=== PATIENT | male | born 1985 | race Caucasian/White ===

== ENCOUNTER 2018-07-13 19:52 | Emergency (ER) | payer OTHER, SELFPAY ==
[2018-07-13 20:43] LABS: #Basophils 0.1 thou/uL (0.0-0.2); #Eosinphils 0.5 thou/uL (0.0-0.7); #Monocytes 0.7 thou/uL (0.11-0.59); #Neutrophils 4.8 thou/uL (1.40-6.50); %Basophils 1.2 % (0.0-1.0); %Eosinophils 5.8 % (0.0-10.0); %Lymphocytes 24.4 % (21.0-51.0); %Neutrophils 59.7 % (42.0-75.0); Hemoglobin 14.6 g/dL (14.0-18.0); Mean Corpuscular HGB CONC 32.6 g/dL (32.0-36.0); Mean Platelet Volume 7.4 fL (7.4-10.4); Platelet Count 181 thou/uL (130-400); RBC Distribution Width 11.2 % (11.5-14.5); Red Blood Cell (RBC) Count 4.87 mill/uL (4.70-6.10)
[2018-07-13 20:51] LABS: PTT 27.8 SEC (22.9-36.1); Prothrombin Time 12.9 SEC (12.0-14.7)
[2018-07-13] MEDS ORDERED: HYDROcodone/Acetaminophen 10/325 mg Tablet ONE (20:57)
[2018-07-13 21:04] LABS: ALT (SGPT) 11 U/L (8-55); AST (SGOT) 11 U/L (5-34); Albumin 4.1 g/dL (3.5-5.0); Alkaline Phosphatase 72 U/L (40-150); Anion Gap 12 mmol/L (10-20); BUN (Urea Nitrogen) 9 mg/dL (8.9-20.6); Bilirubin, Total 0.5 mg/dL (0.2-1.2); Calc. Creatinine Clearance 0 mL/min (70-130); Calcium 9.2 mg/dL (7.8-10.44); Carbon Dioxide 24 mmol/L (22-29); Chloride 107 mmol/L (98-107); Estimated GFR-MDRD Greater than 90; Glucose 102 mg/dL (70-105); Potassium 4.4 mmol/L (3.5-5.1); Protein, Total 7.1 g/dL (6.0-8.3); Sodium 139 mmol/L (136-145)
== END 2018-07-13 21:58 ==
LOC: ERS 19:52
DX: I82.402 Acute embolism and thrombosis of unspecified deep veins of left lower extremity (principal); I10 Essential (primary) hypertension; E03.9 Hypothyroidism, unspecified; J45.909 Unspecified asthma, uncomplicated; F41.9 Anxiety disorder, unspecified; F17.220 Nicotine dependence, chewing tobacco, uncomplicated; Z79.899 Other long term (current) drug therapy
CPT/HCPCS: 36415; 80053; 85025; 85610; 85730; 99283

== ENCOUNTER 2018-07-19 22:54 | Observation (INO) | payer OTHER, SELFPAY ==
[2018-07-19] MEDS ORDERED: Promethazine HCl 25 MG/ML VIAL ONE (23:45)
--- NOTE | 2018-07-20 00:04 | ULT ---
LEFT LOWER EXTREMITY VENOUS ULTRASOUND WITH SPECTRAL ANALYSIS AND COLORFLOW EVALUATION: 07/19/2018 HISTORY: History of left lower extremity DVT, diagnosed one week ago. TECHNIQUE: Ladd-scale, color-flow, Doppler evaluation, and spectral analysis of the left lower extremity venous structures is performed with 2D imaging. FINDINGS: There is normal lumen compressibility and flow seen within the left lower extremity common femoral ve in and proximal superficial femoral vein; however, there is echogenic material with decreased lumen c ompressibility and near complete absence of flow within the left lower extremity posterior tibial and popliteal, as well as distal and mid superficial femoral veins, consistent with near occlusive to oc clusive DVT. There is normal lumen compressibility involving the limitedly visualized left lower ext remity profunda femoral vein, with flow also seen in this vein. There is normal lumen compressibilit y in the left lower extremity greater saphenous vein. IMPRESSION: Occlusive deep venous thrombosis, extending from the left lower extremity posterior tibial vein to th e mid left superficial femoral vein. The above findings were discussed with Jose Saini, nurse practitioner in the emergency department, on 07/19/2018 at 23:57 hours. CODE CR POS: TRAN
[2018-07-20 02:28] VITALS: BMI 28.8
[2018-07-20] MEDS ORDERED: Ketorolac Tromethamine 30 MG/ML VIAL ONE (02:35)
[2018-07-20] MEDS: Ketorolac Tromethamine 30 MG/ML VIAL IVP PRN ×3 (02:38→20:12)
[2018-07-20] MEDS ORDERED: Acetaminophen 325 MG TAB PO PRN (03:46)
[2018-07-20] MEDS: Sodium Chloride 0.9% 1,000 ML IV SCH ×2 (04:59→15:48)
[2018-07-20] MEDS: Heparin 10,000 UNITS/ 10 ML VIAL SLOW IVP SCH ×2 (05:00→21:06)
[2018-07-20] MEDS: Heparin 25,000 units/D5W 500 ML IVPB SCH ×2 (05:03→21:06)
[2018-07-20] MEDS: Levothyroxine 175 MCG TAB PO SCH (05:13)
--- NOTE | 2018-07-20 10:28 | CON ---
DATE OF CONSULTATION: 07/20/2018 HISTORY OF PRESENT ILLNESS: This is a 32-year-old gentleman with a diagnosis of DVT while in the grisel l about 1 week ago. He reports perhaps 2-3 weeks history of some swelling and discomfort in his left lower leg that preceded a week prior to that by some swelling and discomfort in his right forearm. He has no previous trauma or injury to the left leg prior to the diagnosis of DVT and he was begun on Eliquis about a week ago. Due to persistent swelling and discomfort, the patient has [facility] on 2 occasions since starting Eliquis and was admitted last night. PAST MEDICAL HISTORY: Include untreated hypertension as well as low thyroid. FAMILY HISTORY: Questionable for history of a clotting disorder and it is unclear whether the patien t's confusing arterial vascular problems with venous problems. His father evidently had a bypass for his clots and was also on warfarin, but did have a diagnosis of coronary disease and congestive hear t failure. PAST SURGICAL HISTORY: Appendectomy. SOCIAL HISTORY: As mentioned, the patient is incarcerated at the present time. He is not using toba clinical account specialist products now, but has used oral and inhalation tobacco products in the past. He also admits to o ccasional marijuana and meth use in the past. 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 MEDICATIONS: Include Eliquis 10 b.i.d. to be decreased to 5 b.i.d. as well as levothyroxine 175 mcg a day. Eliquis has been held and he is currently on full dose Lovenox b.i.d. ALLERGIES: None known. PHYSICAL EXAMINATION: GENERAL: Alert, cooperative gentleman, in no distress, appearing his stated age, well -built. VITAL SIGNS: Blood pressure 100/62, heart rate 70. NECK: No carotid bruits, no JVD. LUNGS: Clear to auscultation. No wheezes. CARDIAC: Regular rate and rhythm. No murmurs. ABDOMEN: Soft, nontender. EXTREMITIES: He has palpable posterior tibial and dorsalis pedis pulses. He has tenderness to palpa tion of his posterior tibial pulse in his left ankle with mild foot swelling, good pink color, and go od capillary fill. He has mild ankle swelling on the left and moderate swelling in the left calf wit h tenderness to palpation. His thigh does not appear to be particularly swollen. His upper extremit ies have pulses and there may be some mild swelling in his right forearm compared to his left. I do not think this represents an NOAC failure, but probably patient would benefit from leg elevation . We will check his lupus anticoagulant and T3 levels and we would consider switching him back from Lovenox to his NOAC. No indication at this time for thrombolytic therapy and certainly this patient probably never should receive an IVC filter as long as he can tolerate his anticoagulants.
[2018-07-20 11:24] LABS: PTT 182.6 SEC (22.9-36.1)
--- NOTE | 2018-07-20 14:08 | HP ---
PRIMARY CARE PROVIDER: Unknown. CHIEF COMPLAINT: Left lower extremity swelling. HISTORY OF PRESENT ILLNESS: Mr. Perez is a pleasant 32-year-old gentleman who was seen at [facility] on July 20, 2018. He presented to the emergency room department accompanied by [facility]. Approximately a week ago, he was diagnosed with left lower extremity DVT. This diagnosis was preceded by swelling and discomfort in his left lower leg. He was started on apixaban about a week ago. He continued to have swelling and discomfort and he came to the emergency room. He reports that after he came to [place], he has been keeping his legs elevated and this has resulted in improvement in both color and swelling of his left lower extremity. He denies any fevers or chills. He denies any chest pain or shortness of breath. He denies any nausea or vomiting. REVIEW OF SYSTEMS: All other systems reviewed and found to be negative. PAST MEDICAL HISTORY: Hypertension and hypothyroidism. PAST SURGICAL HISTORY: Appendectomy. PSYCHIATRIC HISTORY: Anxiety. SOCIAL HISTORY: The patient denies alcohol use or recreational drug use. He uses snuff. FAMILY HISTORY: The patient reports that several family members had blood clots. ALLERGIES: No known drug allergies. CURRENT MEDICATIONS: Levothyroxine 175 mcg daily and Eliquis 10 mg 2 times a day for a total of 7 days, then 5 mg 2 times a day. PHYSICAL EXAMINATION: GENERAL: Mr. Perez is awake and alert, not in acute distress. VITAL SIGNS: Blood pressure is 96/54, pulse 69, respiratory rate 14, and he is saturating 97% on room air. He is afebrile. EYES: No scleral icterus. No conjunctival pallor. ENT: Moist mucosal membranes, no oropharyngeal erythema or exudates. NECK: Supple, nontender, trachea is midline. RESPIRATORY: Accessory muscles of breathing are not active. Chest wall movements are symmetric bilaterally. LUNGS: Clear to auscultation without wheeze, rhonchi, or crepitations. CARDIOVASCULAR: S1 and S2 are heard, regular. Peripheral pulses palpable. No carotid bruit, no pericardial rub. ABDOMEN: Soft, nontender, bowel sounds heard, no hepatomegaly, no splenomegaly. NEUROLOGIC: Cranial nerves II-XII are intact. Deep tendon reflexes are 2+. MUSCULOSKELETAL: Power is 5/5 in all 4 extremities. He has a left calf swelling. SKIN: Multiple tattoos. LYMPHATIC: No cervical lymphadenopathy. PSYCHIATRIC: Normal mood, normal affect, patient is oriented to person, place, and time. LABORATORY DATA: Mr. Perez's labs and investigations were reviewed. He had a left lower extremity Doppler, which showed occlusive deep venous thrombosis extending from the left lower extremity posterior tibial vein to mid left superficial femoral vein. He has a normal white count, normal hemoglobin, normal platelet count, INR 1.1, unremarkable comprehensive metabolic profile. ASSESSMENT AND PLAN: Mr. Perez is a pleasant 32-year-old gentleman who was seen at [facility] on July 20, 2018. His problem list includes: 1. Deep vein thrombosis: Mr. Perez has deep vein thrombosis in the left lower extremity, which was diagnosed approximately a week ago. He has been started on apixaban. He reports that it has not gotten better. Vascular Surgery Service has been consulted. They recommended checking antithrombin 3 level as well as lupus anticoagulant and if those are normal, patient should be able to go back on apixaban. If those are abnormal, he may need to be taken off of apixaban. ASSESSMENT AND PLAN: 1. Hypothyroidism: We will continue Synthroid while he is in the hospital. 2. Hypertension: Patient's blood pressure is actually low today. We will continue to monitor vital signs and add antihypertensives if needed. LEVEL OF RISK: Moderate. LEVEL OF COMPLEXITY: Moderate. MTDD
--- NOTE | 2018-07-20 21:30 | CON ---
DATE OF CONSULTATION: 07/20/2018 REASON FOR CONSULTATION: DVT. HISTORY OF PRESENT ILLNESS: A 32-year-old male with recently diagnosed DVT of the left lower extremity approximately 1 week ago, presenting with worsening pain. The patient is currently incarcerated and about a week ago , had an ultrasound at the long term that showed an acute DVT and he was started on Eliquis. He states that he had had pain, swelling, and discomfort for the last 2 months prior to diagnosis. He states that since starting Eliquis, his pain has not improved and has actually worsened. He states that he has been compliant with his pills. He denies any bleeding on the Eliquis. He denies any recent surgeries or procedures, any prolonged immobility. He exercises frequently and denies any recent travel. The patient is a former smoker, has not smoked in 6 months, and states that he last used meth approximately 6 years ago. He states that his father had coronary artery disease and his mother had a blood clot in the leg. REVIEW OF SYSTEMS: Ten-point review of systems is negative except as per HPI. PAST MEDICAL HISTORY: Hypertension, hypothyroidism. PAST SURGICAL HISTORY: Appendectomy. PSYCHIATRIC HISTORY: Anxiety. SOCIAL HISTORY: Current snuff user. Former smoker, quit 6 months ago; and former use of meth and marijuana 6 years ago. FAMILY HISTORY: Blood clot in his mother in the leg, coronary artery disease in his father. ALLERGIES: No known drug allergies. CURRENT MEDICATIONS: Reviewed. PHYSICAL EXAMINATION: VITAL SIGNS: Temperature 97.6, pulse 69, respirations 14, saturating 97% on room air, blood pressure 96 to 146/54 to 75. GENERAL APPEARANCE: The patient is lying in bed in no acute distress. HEENT: No scleral icterus or conjunctival pallor. CARDIAC: S1 and S2. Regular rate and rhythm. No murmurs, rubs, or gallops. RESPIRATORY: Clear to auscultation bilaterally. ABDOMEN: Soft, nondistended, nontender. MUSCULOSKELETAL: Left calf swelling with greater size than the right and without significant edema or erythema. Mild tenderness to palpation. SKIN: Multiple tattoos. LYMPHATIC: No palpable lymphadenopathy. NEUROLOGIC: Cranial nerves II-XII grossly intact. PSYCHIATRIC: Awake, alert, oriented, anxious. LABORATORY DATA: White blood cells 8.9, hemoglobin 14.6, platelets 315. INR 1.1, PTT 52.7, BUN 13, creatinine 0.98. IMAGING DATA: Vascular ultrasound of left lower extremity dated on 07/19/2018 shows occlusive deep venous thrombosis extending from left lower extremity posterior tibial vein to the mid left superficial femoral vein. ASSESSMENT AND PLAN: A 32-year-old male with recent diagnosis of left lower extremity deep venous thrombosis 1 week ago, started on Eliquis, presenting with worsening pain. The patient states he was compliant with Eliquis, but had worsening lower extremity pain. The patient does have swelling in his left calf with mild tenderness, but he does have palpable pulses. As it has only been one week since the patient started medication, I do not think this represents a failure of Eliquis. This appears to be an unprovoked DVT based on history, and so the patient should receive at least 6 months of anticoagulation. Due to the unprovoked nature and history of blood clot in his family, I would recommend checking for factor V Leiden and prothrombin mutation. Other testing, such as Protein C & S, ATIII deficiency cannot be done at this time due to anticoagulation and active clot, and these deficiences are much more rare. There is currently no indication for TPA or IVC filter. Ongoing, the patient could continue on Eliquis or another Xa inhibitor or could possibly receive a total of 5 days of parenteral heparin followed by Pradaxa. We would not favor warfarin. We will follow up genetic testing for hypercoagulable state. Thank you for this consult. MOISÉS
[2018-07-21] MEDS: Sodium Chloride 0.9% 1,000 ML IV SCH ×2 (01:30→11:05)
[2018-07-21] MEDS: Ketorolac Tromethamine 30 MG/ML VIAL IVP PRN ×2 (01:56→08:43)
[2018-07-21 04:48] LABS: #Basophils 0.1 thou/uL (0.0-0.2); #Eosinphils 0.4 thou/uL (0.0-0.7); #Lymphocytes 3.1 thou/uL (1.20-3.40); #Monocytes 0.6 thou/uL (0.11-0.59); #Neutrophils 2.9 thou/uL (1.40-6.50); %Basophils 0.9 % (0.0-1.0); %Eosinophils 5.7 % (0.0-10.0); %Lymphocytes 43.5 % (21.0-51.0); %Monocytes 8.3 % (0.0-10.0); %Neutrophils 41.6 % (42.0-75.0); Hemoglobin 12.4 g/dL (14.0-18.0); Mean Corpuscular HGB CONC 32.6 g/dL (32.0-36.0); Mean Corpuscular Hemoglobin 30.4 pg (27.0-31.0); Mean Corpuscular Volume 93.2 fL (78.0-98.0); Mean Platelet Volume 6.8 fL (7.4-10.4); Platelet Count 259 thou/uL (130-400); RBC Distribution Width 10.9 % (11.5-14.5); Red Blood Cell (RBC) Count 4.08 mill/uL (4.70-6.10); White Blood Cell (WBC) Count 7.1 thou/uL (4.8-10.8)
[2018-07-21 05:10] LABS: Anion Gap 11 mmol/L (10-20); BUN (Urea Nitrogen) 17 mg/dL (8.9-20.6); Calc. Creatinine Clearance 168 mL/min (70-130); Carbon Dioxide 26 mmol/L (22-29); Chloride 108 mmol/L (98-107); Estimated GFR-MDRD 90; Glucose 101 mg/dL (70-105); Potassium 4.7 mmol/L (3.5-5.1); Sodium 140 mmol/L (136-145)
[2018-07-21] MEDS: Levothyroxine 175 MCG TAB PO SCH (05:50)
[2018-07-21] MEDS ORDERED: Apixaban 5 MG TAB PO SCH ×2 (10:30→21:00)
[2018-07-21] MEDS ORDERED: traMADol HCl 50 MG TAB PO PRN (10:38)
[2018-07-21 12:19] LABS: DRVVT Ratio 0.8 Ratio (1.2 or Less)
[2018-07-21 13:21] VITALS: BP 132/75; TEMP 98.2
--- NOTE | 2018-07-21 21:56 | DIS ---
DATE OF ADMISSION: 07/20/2018 DATE OF DISCHARGE: 07/21/2018 PRIMARY CARE PROVIDER: Unknown. DISCHARGE DIAGNOSES: Deep vein thrombosis. CONDITION OF PATIENT AT THE TIME OF DISCHARGE: Stable. I assessed Mr. Perez on the day of discharge . He denies any chest pain or shortness of breath. Vital signs are stable. S1 and S2 are heard, re gular. Lungs are clear to auscultation bilaterally. Left lower extremity has normal color, less ten kota. DISCHARGE MEDICATIONS: Tramadol 50 mg every 8 hours as needed, apixaban 5 mg 2 times a day and Synth roid 175 mcg daily. CONSULTATION DURING THIS HOSPITALIZATION: Cardiovascular surgery, Dr. Houser, and Oncology, Dr. Hunt . HOSPITAL COURSE: Mr. Perez is a pleasant 32-year-old gentleman, who was admitted to [facility] on 07/20/2018 for deep vein thrombosis that was diagnosed 1 week prior to this admi ssion. He was already on apixaban at the time of admission. He was switched to heparin drip. He wa s seen by Cardiovascular and Oncology services. Their opinion is that this is not a failure of apixa ban. He has been advised to continue apixaban. He is transitioned back to apixaban and is being dis charged back to the custody of the [facility]. He had lupus anticoagulant ratio of 0.8, which is normal. He also had functional antithrombin III le trisha of 94%, which is also normal. At the time of this dictation, prothrombin [id number] gene and factor V mutation tests are pending. He is advised to follow up with his primary care provider for the res ults of this test. On the day of discharge, he has white count 7100, hemoglobin 12.4, and platelet count 259,000. Sodiu m 140, potassium 4.7, and creatinine 0.98. DISCHARGE DESTINATION: Long-Term.
== END 2018-07-21 16:47 | disposition home or self-care (01) ==
LOC: ERS 22:54 → T4-A 07-20 02:01
PROVIDERS: ADMIT Internal Medicine; ATTEND Internal Medicine
DX: I82.402 Acute embolism and thrombosis of unspecified deep veins of left lower extremity (principal); I10 Essential (primary) hypertension; E03.9 Hypothyroidism, unspecified; Z79.899 Other long term (current) drug therapy; Z79.01 Long term (current) use of anticoagulants
CPT/HCPCS: 36415; 80048; 81240; 81241; 85025; 85300; 85613; 85730; 96361; 96365; 96366; 96374; 96375; 96376; G0378; J1644; J1885; J2270; J2550

== ENCOUNTER 2018-08-14 23:36 | Observation (INO) | payer OTHER, SELFPAY ==
[2018-08-15] MEDS ORDERED: Acetaminophen 500 MG TAB ONE (00:07)
[2018-08-15] MEDS ORDERED: Ketorolac Tromethamine 30 MG/ML VIAL ONE (00:07)
[2018-08-15 00:17] LABS: #Basophils 0.1 thou/uL (0.0-0.2); #Eosinphils 0.4 thou/uL (0.0-0.7); #Lymphocytes 2.4 thou/uL (1.20-3.40); #Monocytes 0.5 thou/uL (0.11-0.59); #Neutrophils 3.4 thou/uL (1.40-6.50); %Basophils 0.9 % (0.0-1.0); %Eosinophils 5.7 % (0.0-10.0); %Lymphocytes 35.6 % (21.0-51.0); %Monocytes 7.6 % (0.0-10.0); %Neutrophils 50.1 % (42.0-75.0); Hemoglobin 15.6 g/dL (14.0-18.0); Mean Corpuscular HGB CONC 33.6 g/dL (32.0-36.0); Mean Corpuscular Hemoglobin 30.2 pg (27.0-31.0); Mean Corpuscular Volume 90.1 fL (78.0-98.0); Mean Platelet Volume 8.3 fL (7.4-10.4); Platelet Count 181 thou/uL (130-400); RBC Distribution Width 11.9 % (11.5-14.5); Red Blood Cell (RBC) Count 5.17 mill/uL (4.70-6.10); White Blood Cell (WBC) Count 6.8 thou/uL (4.8-10.8)
[2018-08-15 00:38] LABS: ALT (SGPT) 21 U/L (8-55); AST (SGOT) 12 U/L (5-34); Albumin 4.5 g/dL (3.5-5.0); Alkaline Phosphatase 65 U/L (40-150); Anion Gap 13 mmol/L (10-20); BUN (Urea Nitrogen) 10 mg/dL (8.9-20.6); Bilirubin, Total 0.4 mg/dL (0.2-1.2); CK (CPK) 39 U/L (30-200); Calc. Creatinine Clearance 0 mL/min (70-130); Calcium 9.7 mg/dL (7.8-10.44); Carbon Dioxide 26 mmol/L (22-29); Chloride 105 mmol/L (98-107); Estimated GFR-MDRD 83; Glucose 89 mg/dL (70-105); Potassium 4.1 mmol/L (3.5-5.1); Protein, Total 7.5 g/dL (6.0-8.3); Sodium 140 mmol/L (136-145)
[2018-08-15 00:42] LABS: CKMB 0.5 ng/mL (0-6.6); Troponin I Less than 0.010 ng/mL (< 0.028)
[2018-08-15 00:44] LABS: PTT 28.8 SEC (22.9-36.1)
[2018-08-15] MEDS ORDERED: Morphine 4 MG/ML VIAL ONE (01:54)
[2018-08-15] MEDS ORDERED: Heparin 25,000 units/D5W 500 ML ONE (02:14)
[2018-08-15] MEDS ORDERED: Heparin 10,000 UNITS/ 10 ML VIAL SLOW IVP SCH (02:30)
[2018-08-15] MEDS ORDERED: Heparin 25,000 units/D5W 500 ML IV SCH (02:30)
[2018-08-15] MEDS ORDERED: Acetaminophen 325 MG TAB PO PRN (03:41)
[2018-08-15] MEDS ORDERED: Ondansetron ODT 4 MG TAB SL PRN (03:41)
[2018-08-15] MEDS ORDERED: Ondansetron PF 4 MG/2 ML Vial IVP PRN (03:41)
[2018-08-15] MEDS ORDERED: HYDROcodone/Acetaminophen 5/325 mg Tablet PO PRN (03:41)
[2018-08-15 03:57] VITALS: BMI 29.7
[2018-08-15] MEDS: HYDROcodone/Acetaminophen 5/325 mg Tablet PO PRN ×2 (05:53→11:56)
[2018-08-15 10:01] LABS: PTT Greater than 250.0 SEC (22.9-36.1)
--- NOTE | 2018-08-15 10:27 | CT ---
PRELIMINARY REPORT/[facility]/EMERGENTY AFTER-HOURS PROCEDURE CT Angiography Chest With Intravenous Contrast EXAM DATE/TIME: 08/15/2018 12:29 AM CLINICAL HISTORY: 32 years old, male; Signs and symptoms; Dyspnea and shortness of breath; Patient HX: Sob/ eval for po ssible pe; Er 18; M32 presents to ed from care home with C/O left leg pain and swelling. PT reports dx of dvt 1 month ago, was prescribed eliquis and has been taking that since. PT reports pain and swelling have gradually gotten worse over time. PT reports famhx of father passing from blood clot. TECHNIQUE: Axial computed tomographic angiography images of the chest with intravenous contrast using CT angiogr aphy protocol. MIP reconstructed images were created and reviewed. COMPARISON: No relevant prior studies available. FINDINGS: Pulmonary arteries: No evidence of pulmonary embolism. Aorta: No acute findings. No aortic aneurysm or dissection. Lungs: No consolidation. No mass. Pleural space: No pneumothorax. No pleural effusion. Heart: No significant cardiomegaly. No pericardial effusion. Bones/joints: No acute fracture. Soft tissues: No acute findings. Lymph nodes: No significant adenopathy. IMPRESSION: No acute findings. No evidence of pulmonary embolism. Thank you for allowing us to participate in the care of your patient. Dictated and Authenticated by: Fuad Chen MD 08/15/2018 1:06 AM Central Time ([place] & [place]) FINAL REPORT CT PULMONARY ANGIOGRAM WITH IV CONTRAST AND 3D POSTPROCESSING: Date: 08/15/18 FINDINGS/IMPRESSION: I agree with the preliminary report given by Monica. POS: TRAN
--- NOTE | 2018-08-15 10:30 | ULT ---
PRELIMINARY REPORT/[facility]/EMERGENTY AFTER-HOURS PROCEDURE US Left Duplex Lower Extremity Veins, Limited EXAM DATE/TIME: 08/15/2018 12:50 AM CLINICAL HISTORY: 32 years old, male; Pain; Leg, upper; Left; Patient HX: Dx with dvt (mid fv to mid ptv) 1 mo agoplace d on meds, increased pain today TECHNIQUE: Real-time Duplex ultrasound of the Left Lower Extremity with 2-D cormier scale, color Doppler flow and s pectral waveform analysis. Limited exam focused on the left lower extremity veins. COMPARISON: No relevant prior studies available. FINDINGS: Left deep veins: There is occlusive thrombus extending from the mid femoral vein to the popliteal, po sterior tibial and peroneal veins. Left superficial veins: Saphenofemoral junction is patent without thrombus. Soft tissues: No popliteal cyst. IMPRESSION: Left lower extremity deep vein thrombosis. THIS REPORT CONTAINS FINDINGS THAT MAY BE CRITICAL TO PATIENT CARE. The findings were verbally commun icated via telephone conference with CHANDANA INFANTE at 1:43 AM LINK FABRIC MACHINE OPERATOR on 08/15/2018. The findings were a cknowledged and understood. Thank you for allowing us to participate in the care of your patient. Dictated and Authenticated by: Fuad Chen MD 08/15/2018 1:49 AM Central Time ([place] & [place]) FINAL REPORT VENOUS DOPPLER ULTRASOUND OF THE LEFT LOWER EXTREMITY: Date: 08/15/18 FINDINGS/IMPRESSION: I agree with the preliminary report given by Monica. POS: [facility]
[2018-08-15] MEDS ORDERED: Apixaban 5 MG TAB PO SCH ×2 (12:30→21:00)
[2018-08-15] MEDS ORDERED: ISOVUE-370 76%-LOCM 1 ML ONE (12:51)
--- NOTE | 2018-08-15 13:52 | SS ---
DATE OF ADMISSION: 08/15/2018 DATE OF DISCHARGE: 08/15/2018 PRIMARY CARE PHYSICIAN: Currently, the [facility] physician DISCHARGE DIAGNOSES: 1. Chronic left lower extremity occlusive deep vein thrombosis. 2. Hypertension. 3. Hypothyroidism. 4. Positive family history for blood clot formation. CONSULTATIONS: None. PROCEDURES: None. HISTORY AND PHYSICAL: Mr. Perez is a 32-year-old gentleman, admitted here from 07/20/2018-07/21/2018 for left lower extremity DVT occlusive. He was started on Eliquis at that time and he was discharge d back to the long term. He had no chest pain or shortness of breath. Since that time, he has had largely no change in his pain. He has had increased swelling over the la st several days to the point that was excruciating and that he came back to the emergency department yesterday for evaluation. Workup there showed an ultrasound that was positive for left lower extremity DVT unchanged and possib ly slightly improved and CT angiogram was negative for PE. We were subsequently called for admission . The patient was accepted by the fiberglass roller and held overnight. PAST MEDICAL HISTORY: 1. Hypertension. 2. Hypothyroidism. 3. Deep vein thrombosis of the left lower extremity. PAST SURGICAL HISTORY: Included appendectomy, remotely. HOME MEDICATIONS: 1. Levothyroxine 175 mcg daily. 2. Tylenol 500 mg p.o. q.6 hours p.r.n. 3. Eliquis 5 mg p.o. b.i.d. ALLERGIES: NKDA. FAMILY HISTORY: Significant for blood clots. No history of cancer or premature coronary artery dise ase. SOCIAL HISTORY: Negative for habits x3. He is currently incarcerated at the [facility]. I did not ask him why. No history of drug abuse. REVIEW OF SYSTEMS: All systems reviewed and negative except as stated as per HPI. PHYSICAL EXAMINATION: VITAL SIGNS: Temperature on admission 98.0, pulse 72, blood pressure 134/88, respiratory rate 18, sa tting 96% on room air. GENERAL: He is awake. He is alert. He is oriented x3. A well-developed, well-nourished, white mal e, who appears to be in no acute distress. HEENT: Normocephalic, atraumatic. Pupils equal and, reactive to light bilaterally. Mucous membrane s moist. No visible lesion. No thrush. NECK: Supple, without lymphadenopathy, JVD, or thyromegaly. Normal carotid upstrokes without bruits . LUNGS: Clear. No wheezes, no rales, no rhonchi with good air movement. Symmetrical chest excursion . CARDIOVASCULAR: Normal cardiac and regular. Normal S1 and S2. No S3 or S4. He has a faint 2/6 sys tolic ejection murmur at the right upper sternal border. It does not radiate. ABDOMEN: Soft, is nontender, nondistended, no masses or organomegaly. EXTREMITIES: Shows no cyanosis, no clubbing, and no edema on the right. Left lower extremity has 1+ edema to the mid thigh level. He is tender to palpation diffusely. There are no palpable cords. MUSCULOSKELETAL EXAM: Normal to inspection. Large joints are normal. No evidence of inflammation o r effusion. NEUROLOGIC EXAM: Cranial nerves II-XII are grossly intact. He has no deficits, normal strength, and normal speech. LABORATORY DATA: CBC showed a white count of 6.8, hemoglobin of 15.6, hematocrit of 46.6, and platel et count 181,000 with normal differential. INR was 1.0 on arrival. CMP was within normal limits. C K-MB normal at 0.5, troponin I undetectable and BNP is less than 10. RADIOGRAPHIC STUDIES: As above. ASSESSMENT AND PLAN: Occlusive left lower extremity deep vein thrombosis, stable. It is slightly im proved proximally. There is no evidence of new clot and has not extended. The patient has been on h eparin here. I spoke with Dr. Aparicio from Pulmonary and he feels the Eliquis is still a better choice. Review of his genetics showed him to be antithrombin III, factor V Leiden, and lupus anticoagulant normal. We will reload him with Eliquis at 10 mg b.i.d. and continue 5 mg a day after that. He will then get back to the long term today and we placed him on tramadol for pain control. DISCHARGE CONDITION: Stable. DISPOSITION: Being discharged to the [facility]. DISCHARGE ACTIVITY: Per cardiopulmonary limits. He needs to keep his leg elevated at all times when possible. I request they put him in a 20-30 mm compression stockings at all times, although they co uld be taken off to go to sleep. Follow up with the [facility] physician next available.
[2018-08-15] MEDS ORDERED: traMADol HCl 50 MG TAB PO PRN (14:59)
[2018-08-15 15:38] VITALS: BP 122/83; TEMP 98
== END 2018-08-15 15:53 ==
LOC: ERS 23:36 → T4-B 08-15 02:04
PROVIDERS: ADMIT Internal Medicine; ATTEND Internal Medicine
DX: I82.502 Chronic embolism and thrombosis of unspecified deep veins of left lower extremity (principal); I10 Essential (primary) hypertension; E03.9 Hypothyroidism, unspecified; Z79.01 Long term (current) use of anticoagulants; Z79.899 Other long term (current) drug therapy
CPT/HCPCS: 36415; 71275; 80053; 82553; 83880; 84484; 85025; 85610; 85730; 93005; 94760; 96361; 96365; 96366; 96375; G0378; J1644; J1885; J2270

== ENCOUNTER 2018-11-05 14:02 | Emergency (ER) | payer SELFPAY ==
--- NOTE | 2018-11-05 15:34 | ULT ---
VENOUS DUPLEX SONOGRAM LEFT LOWER EXTREMITY: HISTORY: Left leg pain and edema. Known history of DVT. FINDINGS: Good color and spectral Doppler flow in the common femoral vein, at the greater saphenous junction an d in the proximal portion of the femoral vein and deep femoral vein. There is incomplete compressibi lity of the distal femoral vein and the popliteal vein, with diminished flow. Flow is apparent withi n the posterior tibial vein. IMPRESSION: Incompletely occlusive thrombus within the distal left femoral vein and the left popliteal vein. It is less extensive than on the 08/15/2018 study. POS: [facility]
== END 2018-11-05 17:04 | disposition home or self-care (01) ==
LOC: ERS 14:02
DX: I82.402 Acute embolism and thrombosis of unspecified deep veins of left lower extremity (principal); I10 Essential (primary) hypertension; J45.909 Unspecified asthma, uncomplicated; F17.220 Nicotine dependence, chewing tobacco, uncomplicated; F41.9 Anxiety disorder, unspecified; E03.9 Hypothyroidism, unspecified
CPT/HCPCS: 99406